=== PATIENT | male | born 1950 | race Caucasian/White ===

== ENCOUNTER → 2024-10-06 07:59 | Outpatient (REF) | payer MEDICARE, OTHER, SELFPAY | LOC: RCS 07:59 | PROVIDERS: ATTENDING PHYSICIAN Internal Medicine Cardiovascular Disease; FAMILY PHYSICIAN Physician Assistant | DX: I48.91 Unspecified atrial fibrillation (principal); I25.10 Atherosclerotic heart disease of native coronary artery without angina pectoris | CPT/HCPCS: 93306 ==